=== PATIENT | female | born 1980 | race Caucasian/White ===

== ENCOUNTER 2017-10-27 20:16 | Emergency (ER) | payer SELFPAY ==
[~2017-10-27] VITALS: Ht 154.9 cm; Wt 61.2 kg
[2017-10-27 20:22] VITALS: BP_SYST 144
--- NOTE | 2017-10-28 00:50 | NUR ---
Patient to ER bed 3 to gown for evaluation. Side rails up. will assume care
--- NOTE | 2017-10-28 00:52 | NUR ---
Patient complaining of right upper arm and shoulder shooting pain since yesterday. Pain 4/10. No other complaints/injuries per patient or as noted. Will continue to monitor.
--- NOTE | 2017-10-28 00:55 | NUR ---
ER Dr. Jaramillo at bedside examining patient.
[2017-10-28] MEDS ORDERED: KETOROLAC TROMETHAMINE 60 MG/2 ML VIAL IM ONE (01:00)
[2017-10-28 01:17] VITALS: BP_SYST 144
--- NOTE | 2017-10-28 01:17 | NUR ---
Patient given written and verbal discharge instructions and verbalizes understanding. ER MD discussed with patient the results and treatment provided. Patient in stable condition. ID arm band removed. Rx of A[place], ibuprofen and flexeril given. Patient educated on pain management and to follow up with PMD. Pain Scale 0/10 Opportunity for questions provided and answered.
== END 2017-10-28 01:17 | disposition home or self-care (01) ==
LOC: SED 20:16
DX: M75.31 Calcific tendinitis of right shoulder (principal)
CPT/HCPCS: 73030; 81025; 96372; 99284; J1885